=== PATIENT | female | born 1955 | race African-American/Black ===

== ENCOUNTER 2023-11-01 15:13 | Inpatient (IN) | payer MEDICARE ==
[~2023-11-01] VITALS: Ht 165.1 cm; Wt 63.0 kg
[~2023-11-01 15:13] MED LIST: AMLO10TA4 PO; ASCO500C18 PO; ASPI-1497 PO; CALC-1042 PO; CRAN200C5 PO; DEX4 MT; ERGO1250; HYDR25TA PO; KEPP500 MT; LIP40 PO; LISI40TA13 PO; MULT-1146 PO; MULT-1291 PO; ONDA8TAB59 PO; POTA-354 PO; PYRI60TA MT
[2023-11-01 15:49] LABS: HEMATOCRIT. 39.1 % (36.0-48.0); HEMOGLOBIN. 12.8 g/dL (12.0-16.0); MEAN CORPUSCULAR HEMOGLOBIN 27.4 pg (28.0-32.0); MEAN CORPUSCULAR HGB CONC 32.7 g/dL (31.0-37.0); MEAN CORPUSCULAR VOLUME 83.7 fL (81.0-99.0); MEAN PLATELET VOLUME 7.2 fl (7.4-10.4); PLATELET 156 x1000/uL (130-400); RED BLOOD CELL COUNT 4.67 mill/uL (4.2-5.4); RED CELL DISTRIBUTION WIDTH 18.8 % (11.6-14.6); WHITE BLOOD COUNT 9.2 x1000/uL (4.5-11.0)
[2023-11-01] MEDS: SODIUM CHLORIDE 0.9% 1000ML BAG (SEPSIS BOLUS) IV ONE (15:51)
[2023-11-01 15:53] LABS: DIFFERENTIAL COMMENT 1
[2023-11-01 15:55] LABS: CHLORIDE 107 mEq/L (98-107); POTASSIUM 4.2 mEq/L (3.5-5.1); SODIUM 141 mEq/L (136-145)
[2023-11-01 15:56] LABS: CALCIUM 9.2 mg/dL (8.7-10.4); CARBON DIOXIDE 24 mEq/L (21-32)
[2023-11-01 16:01] LABS: GLUCOSE 190 mg/dL (70-105); UREA NITROGEN BLOOD 24 mg/dL (9-23)
[2023-11-01 16:02] LABS: ETHANOL BLOOD < 10 mg/dL (<10); LACTIC ACID 2.1 mmol/L (0.4-2.0); TROPONIN I HIGH SENSITIVITY 12 ng/L (3.0-34)
[2023-11-01 16:03] LABS: ALANINE AMINOTRANSFERASE 220 IU/L (10-49); ALBUMIN 3.8 g/dL (3.2-4.8); ASPARTATE AMINOTRANSFERASE 214 IU/L (<34); BILIRUBIN DIRECT 0.1 mg/dL (<=3.0); BILIRUBIN TOTAL 0.5 mg/dL (0.1-1.0); PROTEIN TOTAL 6.1 g/dL (6.0-8.3)
[2023-11-01 16:09] LABS: HCG SCREEN NEGATIVE
[2023-11-01 16:52] LABS: PLATELET ESTIMATE NORMAL
[2023-11-01 16:53] LABS: ANISOCYTOSIS 1+
[2023-11-01] MEDS: LEVETIRACETAM 500MG PREMIX 100 ML IV NR (18:11)
[2023-11-01 18:16] LABS: TROPONIN I HIGH SENSITIVITY 14 ng/L (3.0-34)
[2023-11-01 19:22] LABS: INR 0.9; PROTHROMBIN TIME 10.3 sec (9.6-11.0)
[2023-11-01] MEDS ORDERED: IPRATROPIUM/ALBUTEROL 0.5-3(2.5)MG/3ML NEB HHN PRN (20:15)
[2023-11-01] MEDS ORDERED: DOCUSATE SODIUM 100MG CAPSULE PO PRN (20:15)
[2023-11-01] MEDS ORDERED: CLONIDINE 0.1MG TABLET PO PRN (20:15)
[2023-11-01] MEDS ORDERED: ONDANSETRON HCL 4MG/2ML INJ IV PRN (20:15)
[2023-11-01] MEDS ORDERED: GUAIFENESIN 200MG/10ML SUGAR FREE UDC PO PRN (20:15)
[2023-11-01] MEDS ORDERED: DEXTROSE 50% WATER 50ML SYRINGE IV PRN (20:30)
[2023-11-01] MEDS ORDERED: LORAZEPAM 2MG/ML INJ IV PRN (20:45)
[2023-11-01] MEDS: DEXT 5%/0.45% NACL 1000ML 1,000 ML IV SCH (21:00)
[2023-11-01 21:06] LABS: TROPONIN I HIGH SENSITIVITY 19 ng/L (3.0-34)
[2023-11-01 21:07] LABS: CREATINE KINASE 58 IU/L (34-145)
[2023-11-01] MEDS: BLOOD SUGAR DIAGNOSTIC STRIP TEST SCH (22:43)
[2023-11-01] MEDS: LEVETIRACETAM 500MG PREMIX 100 ML IV SCH (22:53)
[2023-11-01] MEDS: INSULIN LISPRO 100 UNITS/ML SUBCUT SCH (22:53)
[2023-11-01] MEDS: ENOXAPARIN 40MG/0.4ML SYR SUBCUT SCH (23:22)
[2023-11-01] MEDS: ATORVASTATIN CALCIUM 40MG TABLET PO SCH (23:57)
[2023-11-02 04:33] LABS: CHLORIDE 108 mEq/L (98-107); POTASSIUM 3.1 mEq/L (3.5-5.1); SODIUM 143 mEq/L (136-145)
[2023-11-02 04:34] LABS: CARBON DIOXIDE 27 mEq/L (21-32)
[2023-11-02 04:39] LABS: CREATININE 0.7 mg/dL (0.6-1.0); GLUCOSE 131 mg/dL (70-105)
[2023-11-02 04:40] LABS: UREA NITROGEN BLOOD 17 mg/dL (9-23)
[2023-11-02 04:41] LABS: AMMONIA 22 uMol/L (<32); CREATINE KINASE 45 IU/L (34-145)
[2023-11-02 04:42] LABS: PHOSPHORUS 4.4 mg/dL (2.5-4.9)
[2023-11-02 04:44] LABS: T4 FREE 1.42 ng/dL (0.89-1.76); THYROID STIMULATING HORMONE 0.53 uIU/mL (0.55-4.78)
[2023-11-02 06:28] LABS: BASOPHILS % 0.5 % (0.0-2.0); EOSINOPHILS % 0.2 % (0.0-5.0); HEMATOCRIT. 42.4 % (36.0-48.0); HEMOGLOBIN. 13.6 g/dL (12.0-16.0); MEAN CORPUSCULAR HEMOGLOBIN 27.4 pg (28.0-32.0); MEAN CORPUSCULAR HGB CONC 32.1 g/dL (31.0-37.0); MEAN CORPUSCULAR VOLUME 85.2 fL (81.0-99.0); MEAN PLATELET VOLUME 7.3 fl (7.4-10.4); MONOCYTES % 6.5 % (2.0-8.0); NEUTROPHILS % 76.8 % (40.0-76.0); PLATELET 100 x1000/uL (130-400); RED BLOOD CELL COUNT 4.97 mill/uL (4.2-5.4); RED CELL DISTRIBUTION WIDTH 19.6 % (11.6-14.6); WHITE BLOOD COUNT 6.9 x1000/uL (4.5-11.0)
[2023-11-02 07:40] LABS: CLARITY URINE CLEAR (CLEAR); COLOR URINE YELLOW (YELLOW); GLUCOSE URINE NEGATIVE (NEGATIVE); KETONES URINE NEGATIVE (NEGATIVE); LEUKOCYTE ESTERASE URINE NEGATIVE (NEGATIVE); NITRITE URINE NEGATIVE (NEGATIVE); OCCULT BLOOD URINE TRACE (NEGATIVE); PROTEIN URINE NEGATIVE (NEGATIVE); SPECIFIC GRAVITY URINE 1.014 (1.005-1.030); UROBILINOGEN URINE 0.2 E.U./dL (0.2-1.0)
[2023-11-02 07:57] LABS: BACTERIA URINE TRACE; SQUAMOUS EPITHELIAL CELL URINE RARE /lpf (RARE/1+); WBC URINE 0-2 /hpf (0-2); YEAST URINE NONE SEEN
[2023-11-02] MEDS: AMLODIPINE 10MG TABLET PO SCH (08:54)
[2023-11-02] MEDS: PANTOPRAZOLE 40MG DR TABLET PO SCH (08:54)
[2023-11-02 08:59] VITALS: BP 147/85; PULSE 82; RESP 18; TEMP 98.1
[2023-11-02 09:01] VITALS: BP 147/92; PULSE 82; RESP 18; TEMP 98.1
[2023-11-02] MEDS: DEXAMETHASONE 1MG TABLET PO SCH (10:11)
[2023-11-02 12:00] VITALS: BP 152/84; PULSE 92; RESP 18; TEMP 98.1
[2023-11-02] MEDS: MAGNESIUM 2 G PREMIX 50 ML IV NR (12:34)
[2023-11-02] MEDS: KCL 20MEQ/100ML PREMIX 100 ML IV NR (13:43)
[2023-11-02 16:00] VITALS: BP 142/83; PULSE 90; RESP 18; TEMP 97.5
[2023-11-02 20:00] VITALS: BP 132/91; PULSE 88; RESP 18; TEMP 97.9
[2023-11-02] MEDS ORDERED: FAMOTIDINE 20MG TABLET PO SCH (21:00)
[2023-11-02] MEDS: SENNOSIDES/DOCUSATE SOD 8.6/50MG TABLET PO SCH (21:06)
[2023-11-02] MEDS: LEVETIRACETAM 500MG PREMIX 100 ML IV SCH (21:21)
[2023-11-03] VITALS: BP 120/69; PULSE 91; RESP 18; TEMP 97.9
[2023-11-03 04:00] VITALS: BP 108/81; PULSE 78; RESP 18; TEMP 97.9
[2023-11-03 08:00] VITALS: BP 155/88; PULSE 76; RESP 19; TEMP 97.6
[2023-11-03 12:00] VITALS: BP 124/72; PULSE 100; RESP 18; TEMP 97.9
[2023-11-03 12:37] LABS: CARBON DIOXIDE 27 mEq/L (21-32); CHLORIDE 103 mEq/L (98-107); POTASSIUM 3.3 mEq/L (3.5-5.1); SODIUM 138 mEq/L (136-145)
[2023-11-03 12:38] LABS: CALCIUM 9.1 mg/dL (8.7-10.4)
[2023-11-03 12:43] LABS: CREATININE 0.7 mg/dL (0.6-1.0); GLUCOSE 94 mg/dL (70-105); UREA NITROGEN BLOOD 17 mg/dL (9-23)
[2023-11-03 12:45] LABS: PHOSPHORUS 3.6 mg/dL (2.5-4.9)
[2023-11-03 12:52] LABS: HEMATOCRIT 40.7 % (36.0-48.0); HEMOGLOBIN 13.7 g/dL (12.0-16.0); MEAN CORPUSCULAR HEMOGLOBIN 27.7 pg (28.0-32.0); MEAN CORPUSCULAR HGB CONC 33.6 g/dL (31.0-37.0); MEAN CORPUSCULAR VOLUME 82.5 fL (81.0-99.0); PLATELET 107 x1000/uL (130-400); RED BLOOD CELL COUNT 4.93 mill/uL (4.2-5.4); WHITE BLOOD COUNT 7.3 x1000/uL (4.5-11.0)
[2023-11-03 16:00] VITALS: BP 112/82; PULSE 98; RESP 18; TEMP 97.9
[2023-11-03] MEDS: POTASSIUM CHLORIDE 20MEQ TABLET SR PO NR (17:22)
[2023-11-03 20:00] VITALS: BP 115/66; PULSE 77; RESP 20; TEMP 98
[2023-11-03] MEDS: LEVETIRACETAM 500MG TABLET PO SCH (21:00)
[2023-11-03] MEDS: ACETAMINOPHEN 325MG TABLET PO PRN (22:06)
[2023-11-04] VITALS: BP 100/62; PULSE 91; RESP 18; TEMP 97.8
[2023-11-04 04:00] VITALS: BP 118/76; PULSE 76; RESP 18; TEMP 98.2
[2023-11-04 06:14] LABS: HEMATOCRIT 39.8 % (36.0-48.0); HEMOGLOBIN 13.3 g/dL (12.0-16.0); MEAN CORPUSCULAR HEMOGLOBIN 27.4 pg (28.0-32.0); MEAN CORPUSCULAR HGB CONC 33.3 g/dL (31.0-37.0); MEAN CORPUSCULAR VOLUME 82.2 fL (81.0-99.0); PLATELET 103 x1000/uL (130-400); RED BLOOD CELL COUNT 4.84 mill/uL (4.2-5.4); RED CELL DISTRIBUTION WIDTH 19.2 % (11.6-14.6); WHITE BLOOD COUNT 5.1 x1000/uL (4.5-11.0)
[2023-11-04 06:32] LABS: CHLORIDE 106 mEq/L (98-107); POTASSIUM 3.3 mEq/L (3.5-5.1); SODIUM 141 mEq/L (136-145)
[2023-11-04 06:34] LABS: CARBON DIOXIDE 27 mEq/L (21-32)
[2023-11-04 06:35] LABS: CALCIUM 9.1 mg/dL (8.7-10.4)
[2023-11-04 06:39] LABS: CREATININE 0.7 mg/dL (0.6-1.0); GLUCOSE 91 mg/dL (70-105)
[2023-11-04 06:40] LABS: ALANINE AMINOTRANSFERASE 103 IU/L (10-49); UREA NITROGEN BLOOD 21 mg/dL (9-23)
[2023-11-04 06:41] LABS: ALBUMIN 3.5 g/dL (3.2-4.8); ASPARTATE AMINOTRANSFERASE 43 IU/L (<34)
[2023-11-04 06:42] LABS: BILIRUBIN TOTAL 0.6 mg/dL (0.1-1.0); PHOSPHORUS 3.5 mg/dL (2.5-4.9); PROTEIN TOTAL 5.9 g/dL (6.0-8.3)
[2023-11-04] MEDS ORDERED: SODIUM CHLORIDE 0.45% 1,000 ML IV ONE (07:30)
[2023-11-04 08:00] VITALS: BP 120/50; PULSE 91; RESP 20; TEMP 97.6
[2023-11-04] MEDS: POTASSIUM CHLORIDE 20MEQ TABLET SR PO NR (08:40)
[2023-11-04 12:00] VITALS: BP 116/80; PULSE 102; RESP 20; TEMP 97.9
[2023-11-04 16:00] VITALS: BP 132/86; PULSE 99; RESP 18; TEMP 97
[2023-11-04 20:00] VITALS: BP 120/76; PULSE 84; RESP 18; TEMP 97.8
[2023-11-04] MEDS: MAGNESIUM/ALUMINUM HYDROXIDE/SIMETHICONE 30ML UDC PO PRN (20:52)
[2023-11-04] MEDS: LEVETIRACETAM 500MG TABLET PO SCH (20:53)
[2023-11-04] MEDS ORDERED: LEVETIRACETAM 500MG TABLET PO SCH (21:00)
[2023-11-05] VITALS: BP 118/66; PULSE 70; RESP 18; TEMP 98.4
[2023-11-05 04:00] VITALS: BP 115/62; PULSE 73; RESP 18; TEMP 98.2
[2023-11-05 08:00] VITALS: BP 143/86; PULSE 76; RESP 20; TEMP 98.4
[2023-11-05] MEDS ORDERED: KEPP500 PO (11:08)
[2023-11-05] MEDS ORDERED: LIP40 PO (11:08)
[2023-11-05] MEDS ORDERED: AMLO10TA80 PO (11:08)
[2023-11-05 12:00] VITALS: BP 105/69; PULSE 73; RESP 20; TEMP 99
[2023-11-05 12:57] VITALS: BP 105/69; PULSE 73; TEMP 99; O2SAT 96
== END 2023-11-05 14:10 | disposition home or self-care (01) | DRG 100 ==
LOC: ER 15:51 → EDBEDREQTM 18:58 → EDBEDREQ 18:58 → 8WST 11-02 08:11
PROVIDERS: ADMIT Internal Medicine; ATTEND Internal Medicine
PROC: 4A00X4Z Measurement of Central Nervous Electrical Activity, External Approach (ICD-10-PCS; principal; 2023-11-05)
DX: G40.901 Epilepsy, unspecified, not intractable, with status epilepticus (principal); G93.6 Cerebral edema; E87.20 Acidosis, unspecified; C79.31 Secondary malignant neoplasm of brain; C50.919 Malignant neoplasm of unspecified site of unspecified female breast; E78.5 Hyperlipidemia, unspecified; I10 Essential (primary) hypertension; Z51.5 Encounter for palliative care; Z66 Do not resuscitate
CPT/HCPCS: 36415; 70553; 71045; 80048; 80053; 80061; 80076; 80320; 81003; 82140; 82542; 82550; 82962; 83036; 83605; 83735; 84100; 84439; 84443; 84484; 84703; 85025; 85027; 93005; 99285; J1650; J1815; J1953; J3475; J3480; J7030; J8540; G0480